=== PATIENT | male | born 1965 | race Caucasian/White ===

== ENCOUNTER 2017-09-01 10:54 | Outpatient (CLI) | payer OTHER ==
--- NOTE | 2017-09-01 12:59 | RAD ---
CERVICAL SPINE: Technique: Lateral views of the cervical spine obtained with neutral, flexion, and extension views. History: Cervical radiculopathy. FINDINGS: There are moderate to severe degenerative changes at the C5-6 and C6-7 levels. Loss of disc space at both of these levels with large anterior bridging osteophytes and mild wedging of the C5, C6, and C7 vertebra. Mild posterior spondolytic changes at these levels. There is mild anterior subluxation at C7-T1 on the lateral view measured at approximately 3 mm. The d egree of subluxation at the C7-T1 level does not appear to significantly change with flexion or exten jazzy. However, on flexion views this level is difficult to evaluate. IMPRESSION: There are moderate to severe degenerative changes at the C5-6 and C6-7 levels with wedging of the C5, C6, and C7 vertebra. Slight anterolisthesis at C7-T1 is noted as described. POS: [facility]
== END 2017-09-01 10:55 | disposition home or self-care (01) ==
LOC: TBSIIMAG 10:54
PROVIDERS: ATTEND Neurological Surgery
DX: M54.12 Radiculopathy, cervical region (principal); M47.892 Other spondylosis, cervical region; M43.13 Spondylolisthesis, cervicothoracic region
CPT/HCPCS: 72040

== ENCOUNTER → 2018-02-17 | Day surgery (SDC) | payer OTHER ==
[2018-02-16 09:37] VITALS: BMI 31.0
--- NOTE | 2018-02-17 14:46 | MRI ---
CERVICAL SPINE MRI WITHOUT CONTRAST: HISTORY: Left arm, shoulder, and neck pain. COMPARISON: None. TECHNIQUE: Cervical spine MRI is performed without intravenous Gadolinium administration. Multisequential, mult iplanar imaging is performed. FINDINGS: Appropriate T1 marrow signal intensity of the cervical vertebrae. Vertebral body height is maintaine d. No fracture. 3.2 mm of anterolisthesis of C4 upon C5, 3.5 mm anterolisthesis of C7 upon T1. No significant STIR hyperintensity to suggest edema or ligamentous injury. There is mild mucosal thickening in the paranasal sinuses. The visualized brain parenchyma, cervicomedullary junction, cervical cord, and the upper thoracic cor d have a normal size and signal intensity. C2-C3: Central disk-osteophyte complex abuts the thecal sac. Midline ventral subarachnoid space is effaced. No significant mass effect upon the cervical cord. No significant central canal stenosis. The right neural foramen is patent. Mild left foraminal narrowing due to degenerative change of the uncovertebral joint. C3-C4: A broad-based disk-osteophyte complex abuts the thecal sac. Ventral subarachnoid space is st ill maintained. There is mild flattening of the ventral/left paracentral cord. No T2 hyperintensity of the cord. Overall, there is mild to moderate central canal stenosis. Degenerative change of markos ateral uncovertebral joints results in moderate bilateral foraminal narrowing. C4-C5: Broad-based disk-osteophyte complex abuts the thecal sac. The ventral subarachnoid space is still maintained. There is mild deformity of the thecal sac and cord. Overall, there is mild centra l canal stenosis. Mild right and moderate left foraminal narrowing due to degenerative change of the uncovertebral joint. C5-C6: Broad-based disk-osteophyte complex abuts the thecal sac. There is deformity of the ventral thecal sac and ventral cord. No T2 hyperintensity in the cord. Overall, there is mild central canal stenosis. Right neural foramen is minimally narrowed. There is moderate left foraminal narrowing d ue to degenerative change of the uncovertebral joint. C6-C7: Broad-based disk-osteophyte complex abuts the thecal sac. Moderate central canal stenosis. Mild flattening of the ventral cord. No T2 hyperintensity in the cord. Degenerative change in bilat eral uncovertebral joints as well as moderate to severe bilateral foraminal narrowing. C7-T1: No significant disk-osteophyte complex. No significant central canal stenosis. Moderate to severe right and mild to moderate left foraminal narrowing. IMPRESSION: Degenerative changes of the cervical spine as above. POS: [facility]
== END ==
LOC: SDC/OP 11:17
PROVIDERS: ATTEND Neurological Surgery
DX: M50.20 Other cervical disc displacement, unspecified cervical region (principal); M48.02 Spinal stenosis, cervical region; Z79.899 Other long term (current) drug therapy
CPT/HCPCS: 72141

== ENCOUNTER 2018-07-25 10:32 | Day surgery (SDC) | payer OTHER ==
[2018-07-24 15:46] VITALS: BMI 31.9
[2018-07-25] MEDS ORDERED: Fentanyl 100 MCG/2 ML VIAL ONE ×2 (11:47→12:11)
--- NOTE | 2018-07-25 14:45 | MRI ---
MRI OF THE LUMBAR SPINE: Date: 07-25-18 History: Left sided low back pain radiating down the left leg with foot numbness/radiculopathy. Technique: Multiplanar, multisequence MRI imaging of the lumbar spine is provided without contrast. FINDINGS: The sagittal STIR imaging demonstrates no focal area of osseous marrow edema. Diffuse central canal s tenosis on the basis of congenitally short pedicles noted. Assuming five lumbar type vertebral bodies , conus medullaris terminates at L1. T12-L1: Intervertebral disc height and signal intensity is within normal limits with no significant c entral canal or neural foraminal stenosis. L1-2: Intervertebral disc height and signal intensity within normal limits. Mild bilateral facet hype rtrophy. No significant central canal or neural foraminal stenosis. L2-3: Mild bilateral facet hypertrophy. There is a left foraminal annular tear with an associated sma ll left foraminal disc protrusion. Mild associated left neural foraminal stenosis. No significant dave tral canal or right neural foraminal stenosis. L3-4: Mild bilateral facet hypertrophy. Mild disc space narrowing. No significant central canal or ne ural foraminal stenosis. L4-5: Disc space narrowing and disc desiccation. Mild disc bulge. Bilateral facet hypertrophy. Mild c entral canal stenosis. Mild/moderate bilateral neural foraminal stenosis, left greater than right. L5-S1: Bilateral facet hypertrophy. Disc space narrowing, disc desiccation and mild disc bulge with n o significant central canal stenosis. Severe bilateral neural foraminal stenosis. The imaged retroperitoneal structures demonstrate a retroaortic left renal vein. IMPRESSION: Degenerative disc disease and facet hypertrophic change as detailed above. POS: [facility]
[2018-07-25] MEDS ORDERED: Ondansetron PF 4 MG/2 ML Vial ONE (16:10)
[2018-07-25] MEDS ORDERED: PROPOFOL 200 MG/20 ML VIAL ONE (16:10)
[2018-07-25] MEDS ORDERED: Lidocaine 1% PF 5 ML VIAL ONE (16:10)
== END 2018-07-25 14:49 | disposition home or self-care (01) ==
LOC: SDC/OP 10:32
PROVIDERS: ATTEND Neurological Surgery
DX: M51.16 Intervertebral disc disorders with radiculopathy, lumbar region (principal); M47.26 Other spondylosis with radiculopathy, lumbar region
CPT/HCPCS: 72148; J3010

== ENCOUNTER 2018-09-01 05:42 | Day surgery (SDC) | payer OTHER ==
[2018-08-23 08:59] VITALS: BMI 31.0
--- NOTE | 2018-08-30 19:11 | HP ---
HISTORY OF PRESENT ILLNESS: Mr. Campos returns with the same neck and arm pain that he has had in the past. He wonders about surgical options. There is no weakness, mild numbness, no imbalance, no sphincter issues, no leg issues. He is tired of the pain as it has been hurting for more than 10 years. REVIEW OF SYSTEMS: 10-point review of systems has been completed and is negative other than stated above in the HPI. MEDICATIONS: 1. Nexium. 2. Lyrica. 3. Naproxen. 4. Crestor. PAST MEDICAL HISTORY: Nerve pain, neck pain, and hyperlipidemia. PAST SURGICAL HISTORY: Tonsillectomy. FAMILY HISTORY: Father is alive, diagnosed with hypertension. Mother is alive, siblings and children both are alive. SOCIAL HISTORY: The patient is a nonsmoker. Does not use any other illicit drugs and drinks alcohol occasionally. PHYSICAL EXAMINATION: CONSTITUTIONAL: The patient is alert and oriented, does not appear to be in any visible distress. HEENT: Head is normocephalic and atraumatic. Pupils are equal, round, and reactive to light. Extraocular movements are intact. Hearing is intact. Moist mucous membranes. RESPIRATIONS: Normal work of breathing on room air. CARDIAC: Regular rate and rhythm. NEUROLOGIC: Gait and station are normal. Motor exam, there is normal strength in the deltoid, biceps, triceps, wrist extensors, finger extensors, and interossei. Sensory exam, there is no dermatomal sensory loss in C5, C6, C7, C8, or T1. Reflex exam, left brachioradialis, triceps diminished compared to right. Spine exam, Spurling is negative. IMAGING: MRI, severe left foraminal disease at 5-6, 6-7. Mild slip at C7-T1, flexion extension C3-C4 instability is moderate. ASSESSMENT AND PLAN: 1. Cervical radiculopathy disorder of the intravertebral cervical disk and degenerative disk disease. 2. Dr. Novak has offered surgery of anterior cervical discectomy and fusion at C5 to 7. He discussed the risks and benefits including, but limiting to bleeding, infection, CSF leak, nerve damage, weakness, swallowing trouble, feeding tube placement, tracheal injury, esophageal injury, nerve damage, weakness, swelling, vocal cord injury, spinal cord injury, incontinence, paralysis, ventilator dependence, wheelchair dependence, stroke, loss of vision, carotid artery injury, jugular vein injury, hardware displacement, cardiopulmonary complications of anesthesia or . Long-term complications were discussed included, but were not limited to hardware failure and the degradation of the surrounding disk. The patient states that he understands the risks and is willing to proceed with surgery. Job ID: [id number]
[2018-09-01] MEDS ORDERED: Sodium Chloride 0.9% 10 ML ONE (06:16)
[2018-09-01] MEDS ORDERED: Thrombin 5000 UNITS/5 ML VIAL ONE (06:16)
[2018-09-01] MEDS ORDERED: CEFAZOLIN 2 GM/50 ML BAG ONE (06:26)
[2018-09-01] MEDS ORDERED: Famotidine/PF 20 mg/2ml Vial ONE (06:45)
[2018-09-01] MEDS ORDERED: Midazolam HCl 2 mg/2 ml Vial ONE (06:45)
[2018-09-01] MEDS ORDERED: Fentanyl 100 MCG/2 ML VIAL ONE (06:59)
[2018-09-01] MEDS ORDERED: HYDROmorphone 2 MG/ML VIAL ONE (07:46)
[2018-09-01] MEDS ORDERED: tiZANidine HCl 4 MG TAB ONE (13:28)
[2018-09-01] MEDS ORDERED: CEFAZOLIN 1 GM VIAL ONE (13:59)
[2018-09-01] MEDS ORDERED: Sodium Chloride 0.9% 100 ML ONE (14:00)
--- NOTE | 2018-09-01 14:14 | OP ---
DATE OF PROCEDURE: 09/01/2018 BOW MAKER MACHINE TENDER: Nereyda Miller PA-C PREOPERATIVE INDICATION: Treat pain and prevent neurological deterioration. PREOPERATIVE DIAGNOSIS: Left C6 and C7 radiculopathies from intervertebral disk disease at C5-C6 and C6-C7. POSTOPERATIVE DIAGNOSIS: Left C6 and C7 radiculopathies from intervertebral disk disease at C5-C6 and C6-C7. PROCEDURES PERFORMED: Anterior cervical diskectomy, intervertebral arthrodesis, placement of intervertebral biomechanical device, local morcellized autograft, morcellized allograft, anterior cervical plating at C5-C6 and C6-C7, and operating microscope. PREOPERATIVE MEDICATION: Ancef 2 g IV. DRAINS: Zero. DRAIN TYPE: None. DESCRIPTION OF PROCEDURE: The patient was brought to the operating room. General endotracheal anesthesia was induced. The patient was carefully positioned supine on the operating table with his head supported by a donut-shaped headrest. A lateral fluoro-radiograph was used to plan our incision. The right side of the neck was sterilely prepped and draped. We opened our incision with a 10-blade knife and controlled bleeding with bipolar cautery. We dissected sharply to the platysma and cut this muscle in line with our incision. We continued our dissection medial to the sternocleidomastoid and lateral to the trachea and esophagus all the way down to the prevertebral space. We placed a marker at C5-C6 and took a lateral fluoro-radiograph to confirm the level of spine which were operating. We then elevated the longus colli muscles off the anterior surface of C5, C6, and C7. We placed a self-retaining retractor beneath them. We placed distraction pins at C5 and C7 and distracted across the two intervening interspaces. We incised the interspaces with a 15-blade knife and removed disk contents using curettes and rongeurs. As we approached the posterior longitudinal ligament, we brought the operating microscope into the field. Under microscopic magnification and using microsurgical techniques, we removed the remainder of the intervertebral disk and the posterior longitudinal ligament along with posterior osteophyte from one neural foramen all the way to the other foramen across the entire interspace at C5-C6 and again at C6-C7. The left C6 nerve root was particularly sensitive to work in the foramen, but once we decompressed, that sensitivity went away. With the decompression secured, we turned our attention to arthrodesis. Using curettes, we prepared the endplates for grafting at C5-C6 and C6-C7. We measured the height of each interspace to 6 mm with a bone rasp. Two separate PEEK intervertebral grafts were brought into the field. These grafts were loaded with demineralized bone matrix and morcellized autograft. The autograft had already been prepared on the back table from osteophytes removed during our decompression. These osteophytes were morselized, added to demineralized bone matrix, and formed a fusion substrate. The PEEK grafts were advanced into the respective interspaces under radiographic guidance to the appropriate depth. We then removed our distraction pins and took the operative microscope out of the field. A 31 mm anterior cervical plate was brought into the field. We removed anterior osteophytes until the plate laid flat on the vertebral bodies. We drilled automatic pilot mechanic holes through the plate into the vertebral bodies and then affixed the plate using 14mm screws. We used fixed angle screws at C7 and variable angle screws at C5 and C6. We engaged the locking mechanism over each of the six screws. AP and lateral fluoro-radiographs confirmed adequate positioning of our instrumentation. We irrigated copiously with bacitracin irrigation. We controlled the bleeding with bipolar cautery. We closed the wound in anatomical layers and we applied a sterile dressing. This is a clean case with no contamination. Job ID: [id number] [facility]
[2018-09-01] MEDS ORDERED: Lidocaine 1% PF 5 ML VIAL ONE (21:44)
[2018-09-01] MEDS ORDERED: Dexamethasone 20 MG/5 ML VIAL ONE (21:44)
[2018-09-01] MEDS ORDERED: Ketorolac Tromethamine 30 MG/ML VIAL ONE (21:44)
[2018-09-01] MEDS ORDERED: PROPOFOL 200 MG/20 ML VIAL ONE (21:44)
[2018-09-01] MEDS ORDERED: Ondansetron PF 4 MG/2 ML Vial ONE (21:44)
[2018-09-01] MEDS ORDERED: PHENYLEPHRINE-NS 100 MCG/ML 10 ML SYRINGE ONE (21:44)
[2018-09-01] MEDS ORDERED: Glycopyrrolate 0.2 MG/ML 5 ML SYRINGE ONE (21:44)
== END 2018-09-01 15:05 | disposition home or self-care (01) ==
LOC: SDC 05:42
PROVIDERS: ATTEND Neurological Surgery
DX: M50.822 Other cervical disc disorders at C5-C6 level (principal); M50.123 Cervical disc disorder at C6-C7 level with radiculopathy; E78.5 Hyperlipidemia, unspecified; Z79.1 Long term (current) use of non-steroidal anti-inflammatories (NSAID); Z79.899 Other long term (current) drug therapy
CPT/HCPCS: 76001; C1713; C1776; J0131; J0690; J1100; J1170; J1885; J2001; J2250; J2405; J2704; J3010; J3490; J7050; S0028

== ENCOUNTER 2018-09-25 09:28 | Outpatient (CLI) | payer OTHER ==
--- NOTE | 2018-09-25 11:06 | RAD ---
5 VIEW CERVICAL SPINE SERIES: Date: 09/25/18 INDICATION: Cervical radiculopathy. FINDINGS: There is anterior metal plate and screw fixation from ACDF spanning C5 through C7. No hardware compli cation. Spinal alignment is maintained, without evidence of subluxation. Bilateral masses of C1 are a ppropriately aligned. Dens is partially obscured, but otherwise intact. Multiple facet osteoarthritis is present. IMPRESSION: Postoperative and degenerative changes of the cervical spine. POS: [facility]
== END 2018-09-25 09:29 | disposition home or self-care (01) ==
LOC: TBSIIMAG 09:28
PROVIDERS: ATTEND Neurological Surgery
DX: M47.22 Other spondylosis with radiculopathy, cervical region (principal); Z98.890 Other specified postprocedural states
CPT/HCPCS: 72040

== ENCOUNTER 2024-09-03 10:59 | Day surgery (SDC) | payer OTHER ==
[2024-08-31 12:39] VITALS: BMI 30.4
[2024-09-03 12:07] LABS: #Basophils 0.05 10x3/uL (0.0-0.2); %Basophils 0.6 % (0.0-1.0); %Eosinophils 0.9 % (0.0-10.0); %Lymphocytes 42.6 % (21.0-51.0); %Monocytes 9.3 % (0.0-10.0); %Neutrophils 46.3 % (42.0-75.0); Hematocrit 48.9 % (42.0-52.0); Hemoglobin 16.1 g/dL (14.0-18.0); Mean Corpuscular HGB CONC 32.9 g/dL (32.0-36.0); Mean Corpuscular Hemoglobin 27.1 pg (27.0-31.0); Mean Corpuscular Volume 82.3 fL (78.0-98.0); Mean Platelet Volume 11.5 fL (7.4-10.4); Platelet Count 150 10x3/uL (130-400); RBC Distribution Width 12.4 % (11.5-14.5); Red Blood Cell (RBC) Count 5.94 mill/uL (4.70-6.10)
[2024-09-03 12:26] LABS: Anion Gap 12 mmol/L (10-20); BUN (Urea Nitrogen) 18 mg/dL (8.4-25.7); Calc. Creatinine Clearance 93 mL/min (70-130); Calcium 8.9 mg/dL (7.8-10.44); Carbon Dioxide 24 mmol/L (22-29); Chloride 108 mmol/L (98-107); Estimated GFR 79; Glucose 97 mg/dL (70-105); Potassium 4.1 mmol/L (3.5-5.1); Sodium 140 mmol/L (136-145)
== END 2024-09-03 14:37 | disposition home or self-care (01) ==
LOC: MRI 10:59
PROVIDERS: ATTEND Nurse Practitioner Family
DX: M54.12 Radiculopathy, cervical region (principal); I49.1 Atrial premature depolarization; K21.9 Gastro-esophageal reflux disease without esophagitis; Z79.899 Other long term (current) drug therapy
CPT/HCPCS: 72141; 80048; 85025